=== PATIENT | female | born 1980 | race Caucasian/White ===

== ENCOUNTER → 2024-04-08 | Outpatient (CLI) | payer OTHER ==
--- NOTE | 2024-04-08 13:54 | US ---
EXAMINATION TYPE: US thyroid st tissue head/neck DATE OF EXAM: 04/08/2024 COMPARISON: NONE CLINICAL INDICATION: Female, 44 years old with history of R94.6 Abnormal thyroid labs; Abnormal thyro id levels. Not on thyroid medication GLAND SIZE: Right Lobe: 5.3 x 2.1 x 1.8 cm Overall Parenchyma: homogeneous Left Lobe: 5.1 x 2.1 x 1.5 cm Overall Parenchyma: homogeneous Isthmus Thickness: 0.31 cm NODULES RIGHT: # of nodules measured on right: 0 LEFT: # of nodules measured on left: 0 ISTHMUS: # of nodules measured in the isthmus: 0 Bilateral neck scanned, no evidence of lymphadenopathy. IMPRESSION: 1. No thyromegaly. 2. No thyroid nodules 2017 ACR TI-RADS LEVEL: 0 *Highest TI-RADS level nodule reported
== END | disposition home or self-care (01) ==
LOC: RADUSWWP 08:33
PROVIDERS: ATTEND Family Medicine
DX: E04.1 Nontoxic single thyroid nodule (principal); R22.0 Localized swelling, mass and lump, head
CPT/HCPCS: 76536